=== PATIENT | female | born 1970 | race Hispanic/Latino ===

== ENCOUNTER 2025-05-28 00:05 | Emergency (ER) | payer SELFPAY ==
[~2025-05-28] VITALS: Ht 152.4 cm; Wt 76.2 kg
--- NOTE | 2025-05-28 00:54 | ERN ---
ED Note History of Present Illness Stated Complaint: C/O WEAKNESS, NAUSEA,ASTHMA,SOB,LOW GLUCOSE Chief Complaint: Multiple Complaints Time Seen by MD: 00:36 Dictation: Patient is a 55-year-old female with a past medical history diabetes type 2, hypertension, came to the ER with multiple complains including nausea, lightheadedness, low appetite, dysuria. She denied fever chills, she denies diarrhea. No pain Allergies: Coded Allergies: No Known Allergies (Unverified Allergy, Unknown, 05/28/25) Home Meds Active Scripts Cephalexin Monohydrate (Keflex) 500 Mg Cap, 1 CAP PO QID for 7 Days, #28 CAP 0 Refills Prov:TAYLOR ALEMAN MD 05/28/25 Past Medical History Past Medical History: Anxiety, Asthma, Depression, Diabetes-Type II, Other Additional Past Medical Hx: PTSD Surgical History: Cholecystectomy, Other, Surgical History Other: BELLY [facility] REMOVAL Family History: CAD, DM, HTN Social History: Smokers, Lives with family History: Not Applicable Review of System Dictation NEGATIVE EXCEPT PER HPI Constitutional: Negative for fever,chills, and weight loss Eyes: Negative for injury, pain,redness, and discharge ENT: Negative for injury,pain or swelling Cardiovascular: denies chest pain, palpitations, and edema Respiratory: Negative for shortness of breath, cough, and wheezing, Abdomen/GI: Reports nausea, Back: Negative for injury and pain : Reports pain to urination MS/Extremity: Negative for injury and deformity Skin: Negative for rash, and discoloration Neuro: Reports lightheadedness Psych: Negative for suicide ideation, homicidal ideation, and hallucinations Initial Vital Sign VS Vital Signs Date Time Temp Pulse Resp B/P (MAP) Pulse Ox O2 Delivery O2 Flow Rate FiO2 05/28/25 00:12 97.9 71 20 131/84 97 Room Air 05/28/25 00:45 0 21 Physical Exam Dictation General: awake, alert, NAD Head/Face: Normocephalic, atraumatic Eyes: PERRL, EOMI, vision at baseline ENT: oral cavity clear, TMs clear, no signs of infection Neck: Trachea midline, supple, no nuchal rigidity Cardiovascular: RRR, normal S1/S2, No MRGs, no JVD Respiratory: CTAB, no respiratory distress, No rales or wheezes Abdomen: Soft , no tender Skin: Warm, dry, normal turgor, no rash MS/Extremity: Pulses equal, no cyanosis, neurovascular intact, FROM Neuro: COAx4, GCS 15, strength 5/5, CN 2-12 intact, normal cerebellar exam, normal gait, Psych: Normal behavior, mood, and affect normal Results (Laboratory/Radiology) Laboratory/Radiology Laboratory Tests Test 05/28/25 00:19 05/28/25 00:50 05/28/25 03:50 Whole Blood Glucose 89 MG/DL (70-110) White Blood Count 9.3 K/uL (4.8-10.8) Red Blood Count 5.13 MIL/uL (4.00-5.50) Hemoglobin 15.8 g/dL (12.0-16.0) Hematocrit 47.3 % (36-48) Mean Corpuscular Volume 92.2 fL (79-99) Mean Corpuscular Hemoglobin 30.8 pg (27.0-33.0) Mean Corpuscular Hemoglobin Concent 33.4 g/dL (32.0-36.0) Red Cell Distribution Width 13.3 % (11.0-15.5) Platelet Count 275 K/uL (130-400) Mean Platelet Volume 11.4 fL (7.5-10.5) H Immature Granulocyte % (Auto) 0.3 % (0-1) Neutrophils (%) (Auto) 43.2 % (40.0-77.0) Lymphocytes (%) (Auto) 41.1 % (21.0-51.0) Monocytes (%) (Auto) 7.9 % (3.0-13.0) Eosinophils (%) (Auto) 7.0 % (0.0-8.0) Basophils (%) (Auto) 0.5 % (0.0-5.0) Neutrophils # (Auto) 4.0 K/uL (1.8-7.7) Lymphocytes # (Auto) 3.8 K/uL (1.0-4.8) Monocytes # (Auto) 0.7 K/uL (0.1-1.0) Eosinophils # (Auto) 0.65 K/uL (0.00-0.70) Basophils # (Auto) 0.05 K/uL (0.00-0.20) Absolute Immature Granulocyte (auto 0.03 K/uL (0-1) Nucleated Red Blood Cells 0.0 % (0.0-0.19) Sodium Level 142 mmol/L (136-145) Potassium Level 3.2 mmol/L (3.5-5.1) L Chloride Level 107 mmol/L (101-111) Carbon Dioxide Level 31 mmol/L (21-32) Blood Urea Nitrogen 11 mg/dL (7-18) Creatinine 0.9 mg/dL (0.5-1.0) Glomerular Filtration Rate Calc 76 mL/min (>90) Random Glucose 84 mg/dL (70-105) Total Calcium 9.2 mg/dL (8.5-10.1) Lipase 32 U/L (16-77) Urine Color YELLOW (YELLOW) Urine Appearance CLOUDY (CLEAR) H Urine pH 6.0 (5.0-8.0) Urine Specific [place] 1.031 (1.001-1.031) Urine Protein 10 mg/dL (NEGATIVE) H Urine Glucose (UA) NEGATIVE mg/dL (NEGATIVE) Urine Ketones NEGATIVE mg/dL (NEGATIVE) Urine Occult Blood NEGATIVE (NEGATIVE) Urine Nitrate 2+ (NEGATIVE) H Urine Bilirubin NEGATIVE mg/dL (NEGATIVE) Urine Urobilinogen 0.2 mg/dL (0.2-1.0) Urine Leukocyte Esterase 250 Dianna/uL (NEGATIVE) H Urine RBC 2-5 /HPF (0-1) H Urine WBC 26-50 /HPF (0-1) H Urine Squamous Epithelial Cells MANY /HPF (0-2) Urine Bacteria RARE /HPF (None Seen) ED Course ED Course Orders Procedure Category Date Status Time Cbc With Differential LAB 05/28/25 Complete 00:39 Basic Metabolic Panel LAB 05/28/25 Complete 00:39 Lipase LAB 05/28/25 Complete 00:39 Urinalysis Profile LAB 05/28/25 Complete 00:39 0.9%Nacl 1000ml (Ns PHA 05/28/25 In Process 1000ml) 04:00 Culture Urine GUS 05/28/25 In Process 04:05 Ceftriaxone 2gm Vial PHA 05/28/25 Complete (Rocephin 2gm Inj) 04:30 Current Medications Medications (Trade) Dose Ordered Sig/Debbie Route PRN Reason Start Time Stop Time Status Last Admin Dose Admin Ceftriaxone Sodium (Rocephin 2gm Inj) 2 gm ONCE ONCE IVPB 05/28/25 04:30 05/28/25 04:32 DC 05/28/25 04:19 Sodium Chloride 1,000 ml @ 500 mls/hr Q2H IV 05/28/25 04:00 06/27/25 03:59 05/28/25 04:03 Vital Signs Date Time Temp Pulse Resp B/P (MAP) Pulse Ox O2 Delivery O2 Flow Rate FiO2 05/28/25 00:45 98.2 88 18 125/66 99 Room Air* 0 21 05/28/25 00:12 97.9 71 20 131/84 97 Room Air Medical Decision Making MDM Patient is a 55-year-old female with a past medical history diabetes type 2, hypertension, came to the ER with multiple complains including nausea, lightheadedness, low appetite, dysuria. She denied fever chills, she denies diarrhea. No pain Possible UTI Possible diabetes uncontrolled Possible dehydration CBC, BMP, lipase, UA ordered UA was positive for leukocyte esterase 250, nitrate positive 2 g Rocephin ordered 1 L NS ordered Patient he will be discharged after medication treatment. Antibiotic therapy oral will be provided. She must follow up with her PCP DX & DISP Disposition: Discharge Departure Impression: Primary Impression: UTI (urinary tract infection) Condition: Stable Scripts Cephalexin Monohydrate (Keflex) 500 Mg Cap 1 CAP PO QID for 7 Days, #28 CAP 0 Refills Prov: TAYLOR ALEMAN MD 05/28/25 Referrals: ALESIA MACK MD (PCP) TAYLOR ALEMAN MD May 28, 2025 00:54
[2025-05-28 00:56] LABS: IMMATURE GRANULOCYTE ABSOLUTE 0.03 K/uL (0-1); NUCLEATED RED BLOOD CELLS 0.0 % (0.0-0.19); PLATELET COUNT (AUTO) 275 K/uL (130-400); RED BLOOD CELL COUNT(AUTO) 5.13 MIL/uL (4.00-5.50); RED CELL DISTRIBUTION WIDTH 13.3 % (11.0-15.5); WHITE BLOOD COUNT (AUTO) 9.3 K/uL (4.8-10.8)
[2025-05-28 01:05] LABS: CREATININE 0.9 mg/dL (0.5-1.0); GLOMERULAR FILTR. RATE CALC 76.0 mL/min (>90); GLUCOSE,RANDOM 84.0 mg/dL (70-105); SODIUM SERUM 142.0 mmol/L (136-145); UREA NITROGEN, BLOOD 11.0 mg/dL (7-18)
[2025-05-28] MEDS: 0.9%NACL 1000ML 1,000 ML IV SCH (04:03)
[2025-05-28 04:04] LABS: APPEARANCE,URINE CLOUDY (CLEAR); GLUCOSE, URINE (UA) NEGATIVE (NEGATIVE); LEUKOCYTE ESTERASE ,URINE 250 Leu/uL (NEGATIVE); NITRATE,URINE 2+ (NEGATIVE); OCCULT BLOOD,URINE NEGATIVE (NEGATIVE)
[2025-05-28 04:05] LABS: ADD UA MICROSCOPIC YES
[2025-05-28 04:07] LABS: SQUAMOUS EPITHELIAL CELL,UR MANY /HPF (0-2)
[2025-05-28] MEDS ORDERED: CEPH500B PO (04:14)
[2025-05-28 04:58] VITALS: BP 132/55; PULSE 85; RESP 18; TEMP 98.3; O2SAT 98
== END 2025-05-28 05:00 | disposition home or self-care (01) ==
LOC: EDH 00:05
DX: N39.0 Urinary tract infection, site not specified (principal); E11.9 Type 2 diabetes mellitus without complications; F17.200 Nicotine dependence, unspecified, uncomplicated; J45.909 Unspecified asthma, uncomplicated; Z90.49 Acquired absence of other specified parts of digestive tract
CPT/HCPCS: 99283; 96374; 80048; 83690; 85025; 87086 ×2; 87186; 82948; 81001; 36415; J7040; J0696